=== PATIENT | female | born 1985 | race Caucasian/White ===

== ENCOUNTER 2016-11-17 05:25 | Inpatient (IN) | payer BC, OTHER ==
[2016-10-24 15:08] VITALS: BMI 22.0
--- NOTE | 2016-10-24 15:36 | PAT Medication Instructions ---
Service Date Oct 24, 2016. Current Home Medication List Gabapentin (Neurontin), Unknown Dose PO QAM Levothyroxine Sodium (Levothyroxine Sodium), 1 TAB PO QAM Minocycline (Minocin), 75 MG PO BID Venlafaxine Hcl (Effexor Extended Rel), 150 MG PO QAM [Anxiety Med ], Unknown Dose PO QDAY PRN for ANXIETY Medication Instructions For Your Scheduled Surgery Anxiety Med Unknown Dose PO QDAY PRN for ANXIETY (call with medication to [facility]) - Hold the following medications the morning of surgery: Minocycline (Minocin), 75 MG PO BID - Take the following medications the morning of surgery with a sip of water: Venlafaxine Hcl (Effexor Extended Rel), 150 MG PO QAM Gabapentin (Neurontin), Unknown Dose PO QAM (if needed) Levothyroxine Sodium (Levothyroxine Sodium), 1 TAB PO QAM - Take the following medications as scheduled the night before surgery: Minocycline (Minocin), 75 MG PO BID If you have any questions please call us at [phone] or [phone] ( [facility]) or [phone]
[2016-10-24 15:59] LABS: BASO % 0.2 %; BASO ABS # 0.01 K/uL (0-0.2); COMPLETE YES; EOS % 2.4 %; HEMATOCRIT 38.1 % (37-47); IG% 0.2 %; LYMPH % 31.7 %; LYMPH ABS # 1.45 K/uL (1.2-3.4); MEAN CORPUSCULAR HEMOGLOBIN 29.7 pg (25-34); MEAN CORPUSCULAR HGB CONC 34.1 g/dl (32-36); MEAN PLATELET VOLUME 9.2 fL (7.4-10.4); MONO % 10.3 %; NEUT % 55.2 %; PLATELET COUNT 184 K/uL (130-400); RED BLOOD COUNT 4.38 M/uL (4.2-5.4); WHITE BLOOD COUNT 4.57 K/uL (4.8-10.8)
[2016-10-24 16:19] LABS: BUN/CREATININE RATIO 11.5 (10-20); CALCIUM 8.8 mg/dl (8.5-10.1); CREATININE 0.73 mg/dl (0.60-1.20)
--- NOTE | 2016-10-24 17:49 | HISTORY & PHYSICAL EXAMINATION ---
DATE OF ADMISSION: 11/17/2016 PREOPERATIVE HISTORY AND PHYSICAL ADMITTING DIAGNOSES: 1. Menorrhagia with irregular menstrual cycles. 2. Dysmenorrhea. 3. Failed hormonal therapy. ADMISSION HISTORY: The patient is a 31-year-old 3, para 3, last menstrual period of 29 September who is admitted for total abdominal hysterectomy for chronic menorrhagia, dysmenorrhea and failed hormonal therapy. The patient has had trouble with her menstrual cycles since the of her last child. She has had an outpatient D\T\C hysteroscopy for abnormal ultrasound findings. D\T\C hysteroscopy were negative for pathology. The patient has been tried on multiple oral contraceptive pills without improvement. The patient gets incapacitating dysmenorrhea with her menstrual cycles, only mildly responsive to nonsteroidals. Other hormonal options such as IUDs have been offered, the patient declines and is requesting definitive surgical therapy. PAST MEDICAL HISTORY: OBSTETRICAL: section x3. GYNECOLOGICAL: 1. As above. 2. Mild cervical dysplasia. MEDICAL: Depression, hypothyroidism. SURGICAL: section, wisdom teeth extraction, tubal ligation. SOCIAL HISTORY: Positive for smoking. FAMILY HISTORY: Noncontributory. REVIEW OF SYSTEMS: As per HPI. ADMISSION PHYSICAL EXAMINATION: GENERAL: Shows a pleasant female in no acute distress. VITAL SIGNS: Blood pressure 104/70, height of 5 feet 4 inches and weight of 127 pounds. HEENT: Unremarkable. NECK: Supple. LUNGS: Clear. HEART: With a regular rhythm and rate. ABDOMEN: Soft, nontender. PELVIC: Shows normal external genitalia. Vaginal vault is pink and rugated. Cervical os is closed. Bimanual examination shows an anterior mobile uterus. Adnexa show no palpable masses. RECTAL: Confirmatory. EXTREMITIES: Shows no deep calf tenderness. NEUROLOGIC: Grossly intact. IMPRESSION: A 31-year-old G3, P3 chronic menorrhagia, dysmenorrhea, failed hormonal therapy for definitive surgical therapy. PLAN: The patient declined any further hormonal manipulation such as an IUD. The patient states that she has had her tubes tied and requests definitive surgical therapy. At age 30, an endometrial ablation, I do not believe would be of benefit. The patient has been offered a laparoscopic hysterectomy, but declined and is requesting an open procedure. The risks, benefits and alternatives to the surgery have been discussed while the benefits will be removal of the uterus and cessation of her menstrual cycles, the risks are bleeding, infection, inadvertent injury to bowel or bladder or failure to improve the patient's pain. The patient understands this, permit has been signed and she wishes to proceed.
[~2016-11-17] VITALS: Ht 162.6 cm; Wt 57.9 kg
[2016-11-17] VITALS (18 sets, daily range): BP systolic 97–121; BP diastolic 56–68; PULSE 72–99; TEMP 36.3–37; O2SAT 94–100; Ht 162.6 cm; Wt 57.9 kg
[2016-11-17] MEDS: LACTATED RINGER'S 1000ML 1,000 ML IV SCH ×2 (04:15→20:30)
[~2016-11-17 05:25] MED LIST: ANXIETY MED PO; EFFSR150 PO; GABA-112 PO; LEVO50TA6 PO; MINO75CA2 PO
[2016-11-17] MEDS ORDERED: LACTATED RINGER'S 1000ML IV SCH (06:00)
[2016-11-17] MEDS ORDERED: LACTATED RINGER'S 1000ML 1,000 ML IV SCH (06:00)
[2016-11-17] MEDS ORDERED: CEFAZOLIN 2000 MG/60 ML D5W 60 ML IV SCH (06:00)
[2016-11-17 06:19] LABS: PREG INTERNAL NEGATIVE QC NEG CLEAR BACKGROUND; PREG INTERNAL POSITIVE QC POS CONTROL LINE
[2016-11-17] MEDS ORDERED: MIDAZOLAM HCL 1 MG/ML 2ML VIAL ONE (07:04)
[2016-11-17] MEDS ORDERED: MoRPHine SULFATE PF 1 MG/ML 10 ML AMP/VIAL ONE (07:04)
[2016-11-17] MEDS ORDERED: SCOPOLAMINE 1.5 MG TDSY TD ONE (07:07)
[2016-11-17] MEDS ORDERED: NURSING VERBAL MED ORDER ONE ×2 (07:15→17:45)
--- NOTE | 2016-11-17 07:17 | History & Physical Bridge Note ---
H&P Re-Evaluation Bridge Note: I have examined the patient, reviewed the History & Physical and in the interval since the performance of the History & Physical I have noted the following changes of clinical significance: No changes noted
[2016-11-17] MEDS ORDERED: PROPOFOL IV EMULSION 10 MG/ML 20 ML VIAL IV ONE (07:49)
[2016-11-17] MEDS ORDERED: LIDOCAINE HCL 2% 2 ML VIAL (20MG/ML) ONE (07:50)
[2016-11-17] MEDS ORDERED: ROCURONIUM BROMIDE 10 MG/ML 5 ML VIAL ONE (07:50)
[2016-11-17] MEDS ORDERED: ESMOLOL HCL 10 MG/ML 10 ML VIAL ONE (07:50)
[2016-11-17] MEDS ORDERED: DEXAMETHASONE SOD INJ 4 MG/ML VIAL ONE (08:01)
[2016-11-17] MEDS ORDERED: GLYCOPYRROLATE INJ 0.2 MG/ML VIAL ONE (08:01)
[2016-11-17] MEDS ORDERED: NEOSTIGMINE METHYLSULFATE 5 MG/5 ML SYR ONE (08:01)
[2016-11-17] MEDS ORDERED: ONDANSETRON INJ 2 MG/ML 2 ML VIAL ONE (08:01)
[2016-11-17] MEDS ORDERED: NALOXONE HCL INJ 0.08 MG in SYRINGE 1.8 ML IV PRN (08:39)
[2016-11-17] MEDS ORDERED: LACTATED RINGER'S 1000ML 500 ML IV PRN (08:39)
[2016-11-17] MEDS ORDERED: SODIUM CHLORIDE 0.9% 1000ML 1,000 ML IV PRN (08:39)
[2016-11-17] MEDS ORDERED: NALOXONE HCL INJ 1 MG in SODIUM CHLORIDE 0.9% 1000ML 1,000 ML IV PRN (08:39)
[2016-11-17] MEDS ORDERED: ONDANSETRON INJ 2 MG/ML 2 ML VIAL IV PRN (08:45)
[2016-11-17] MEDS ORDERED: NO NARCOTICS OR SEDATIVES SCH (08:45)
[2016-11-17] MEDS ORDERED: DiphenhydrAMINE HCL 50 MG/ML VIAL IV PRN (08:45)
[2016-11-17] MEDS ORDERED: EpHEDrine SULFATE INJ 50 MG/ML AMP IV PRN (08:45)
[2016-11-17] MEDS ORDERED: NALOXONE HCL 0.4 MG/1 ML VIAL/CARP IV PRN (08:45)
[2016-11-17] MEDS ORDERED: MoRPHine SULFATE PF 1 MG/ML 10 ML AMP/VIAL EPI PRN (08:45)
[2016-11-17] MEDS ORDERED: NALBUPHINE HCL INJ 10 MG/ML AMP IV PRN (08:45)
--- NOTE | 2016-11-17 09:08 | [facility] Post Operative Brief Note ---
Immediate Operative Summary Operative Date Nov 17, 2016. Pre-Operative Diagnosis 1. Menorrhagia with irregular menstral cycle 2. Dysmenorrhea 3. Failed hormonal therapy Post-Operative Diagnosis 1. Menorrhagia with irregular menstral cycle 2. Dysmenorrhea 3. Failed hormonal therapy Procedure(s) Performed 1) Total Abdominal Hysterectomy 2) Bilateral salpingectomy Surgeon Dr. Darwin Pelayo Motor Vehicle Escort Driver Surgeon(s) Dr. Cleveland Hernandez Estimated Blood Loss 50 ML Findings multiparous uterus with bladder adhesions, nml appearing tubes and ovaries bilateral, RAFAEL with bilateral salpingectomy Specimens Permanent Specimen: A: Uterus, cervix and Right fallopian tube b: Left Fallopian tube Drains Durán to gravity Anesthesia General Complication(s) None Disposition Recovery Room / PACU
[2016-11-17] MEDS ORDERED: MoRPHine SULFATE 10 MG/ML CARP/VIAL ONE (09:11)
[2016-11-17] MEDS: KETOROLAC TROMETHAMINE 30 MG/ML VIAL IV. PRN ×2 (09:15→18:44)
[2016-11-17] MEDS: MoRPHine SULFATE 2 MG/ML CARP IV PRN ×2 (09:20→09:26)
[2016-11-17] MEDS ORDERED: HYDROmorphone INJ 2 MG/ML SYR/VIAL ONE (09:29)
[2016-11-17] MEDS ORDERED: HYDROmorphone INJ 1 MG/ML SYR IV PRN (09:30)
[2016-11-17] MEDS: HYDROmorphone INJ 2 MG/ML SYR/VIAL ONE (09:55)
[2016-11-17] MEDS: MEPERIDINE HCL 25 MG/ML CARP IV PRN ×2 (10:05→14:18)
--- NOTE | 2016-11-17 10:57 | Anesthesiology Progress Note ---
Anesthesia Post Op Note Date & Time Nov 17, 2016 at 10:54 Vital Signs Pain Intensity: 2 Vital Signs Past 12 Hours Date Time Temp Pulse Resp B/P Pulse Ox O2 Delivery O2 Flow Rate FiO2 11/17/16 10:50 36.4 11/17/16 10:44 93 16 11/17/16 10:44 93 16 97 11/17/16 10:43 116/71 11/17/16 10:39 93 16 11/17/16 10:39 93 16 94 11/17/16 10:38 122/70 11/17/16 10:34 95 16 11/17/16 10:34 97 16 96 11/17/16 10:33 122/76 11/17/16 10:32 92 20 11/17/16 10:32 93 20 95 11/17/16 10:28 116/67 11/17/16 10:27 87 16 11/17/16 10:27 85 16 92 11/17/16 10:23 122/66 11/17/16 10:22 83 19 92 11/17/16 10:22 81 19 11/17/16 10:21 85 16 97 11/17/16 10:21 86 16 11/17/16 10:18 116/64 11/17/16 10:16 92 16 11/17/16 10:16 85 16 96 11/17/16 10:13 102/74 11/17/16 10:11 98 22 11/17/16 10:11 98 22 98 11/17/16 10:08 106/67 11/17/16 10:06 96 24 11/17/16 10:06 99 24 98 11/17/16 10:03 135/74 11/17/16 10:01 98 19 11/17/16 10:01 99 19 99 11/17/16 09:59 148/47 11/17/16 09:56 96 24 11/17/16 09:56 96 24 99 11/17/16 09:53 113/62 11/17/16 09:51 97 21 11/17/16 09:51 98 21 11/17/16 09:50 125/71 11/17/16 09:46 100 15 100 11/17/16 09:46 86 15 11/17/16 09:43 119/59 11/17/16 09:41 90 19 11/17/16 09:41 88 19 99 11/17/16 09:39 107/41 11/17/16 09:36 89 14 100 11/17/16 09:36 89 14 11/17/16 09:34 101/54 11/17/16 09:31 96 20 11/17/16 09:31 95 20 100 11/17/16 09:29 125/83 11/17/16 09:26 101 21 11/17/16 09:26 101 21 100 11/17/16 09:24 128/75 11/17/16 09:21 100 24 11/17/16 09:21 103 24 100 11/17/16 09:19 106/56 11/17/16 09:16 100 22 11/17/16 09:16 99 22 98 11/17/16 09:11 98 18 11/17/16 09:11 102 18 100 11/17/16 09:11 36.8 98 16 117/74 100 Mask 10 11/17/16 05:48 36.7 91 20 116/67 99 Room Air Notes Mental Status: alert / awake / arousable, participated in evaluation Pt Amnestic to Procedure: Yes Nausea / Vomiting: adequately controlled Pain: adequately controlled Airway Patency, RR, SpO2: stable & adequate BP & HR: stable & adequate Hydration State: stable & adequate Neuraxial Anesthesia: was administered, sensory block is resolving Anesthetic Complications: no major complications apparent The patient received a Duramorph spinal prior to intubation for the procedure. She was given Duramorph IV intraoperatively. In the PACU the patient was having pain for which she received morphine, Toradol, Dilaudid, and Demerol. She now appears comfortable. She will have continuous pulse oximetry overnight.
--- NOTE | 2016-11-17 11:20 | OPERATIVE REPORT ---
DATE OF OPERATION: 11/17/2016 PREOPERATIVE DIAGNOSES: 1. Menorrhagia with irregular menstrual cycles. 2. Dysmenorrhea. POSTOPERATIVE DIAGNOSES: Same. PROCEDURE PERFORMED: Total abdominal hysterectomy and bilateral salpingectomy. SURGEON: Dr. Trent Pelayo. REGISTRAR MUSEUM: Dr. Hernandez. ANESTHESIA: General. FINDINGS: Exploration of the pelvis showed a multiparous uterus with adhesions consistent with a previous section. Normal appearing tubes and ovaries bilaterally. Total abdominal hysterectomy with bilateral salpingectomy performed. PROCEDURE IN DETAIL: The patient was taken to the operating room and after general anesthesia, was placed in the dorsolithotomy position, draped and prepped in the usual fashion. Pfannenstiel-type incision to previous surgical scar was made. Underlying subcutaneous tissue was dissected down to the ventral abdominal fascia, which was nicked and opened in a horizontal manner. Preperitoneal fascia was dissected away until the peritoneal cavity was entered and opened in a vertical manner. Pelvic organs were visualized with the description as above. The O'Emeka-O'Worrell retractor was inserted into the incision with lateral packing to bring the retractor off the perineal and femoral nerves. The bladder blade was placed. The intestines were packed into the upper abdomen. The left fallopian tube was excised by cauterizing along the mesosalpinx and sent for pathological evaluation. The left round ligament was then cauterized and cut, opening the anterior leaf of the broad ligament, which was taken down over the level of the bladder flap. Adhesiolysis performed of bladder flap adhesions, freeing the bladder flap from the anterior surface of the uterus. The left perirectal space was then developed until the ureter could be seen coursing along the medial reflection of the peritoneum. This allowed cross clamping of the ovarian suspensory ligament excising it from the uterus and ligating with 0 Vicryl suture. In a similar fashion, the right fallopian tube was excised cutting along the mesosalpinx and sent for pathological evaluation. The right round ligament was cut opening the anterior leaf of the broad ligament, which was taken down to join the contralateral side. Right perirectal space was developed until the ureter could be seen coursing along the medial reflection of the peritoneum. This allowed cross clamping of the ovarian suspensory ligament on the right, cutting and tying with 0 Vicryl suture. Dissection was again turned to the bladder, which was bluntly and sharply taken down below the level of the cervix. Uterine vessels were skeletonized bilaterally. Vijay clamps were then placed across the uterine vessels bilaterally. They were then cut and ligated with 0 Vicryl suture. The cardinal and uterosacral ligaments were then clamped bilaterally with a straight [place] clamp. Vijay Linda clamps were then placed across the vagina below the level of the cervix joining in the midline. Using Angelica scissors, the cervix was excised from the vagina. The vaginal cuff was closed with 2 layers of 0 Vicryl with a whipstitch fashion removing the Vijay Linda clamp. Hemostasis present. The pelvis was irrigated with 1000 mL of warm saline. All pedicles were inspected for hemostasis, which was present. The ovarian suspensory ligament was attached to the round ligament with 0 Vicryl suture, bringing the ovaries out of the pelvis bilaterally. All pedicles were again inspected for hemostasis, which was present. The O'Emeka-O'Worrell retractor was removed from the incision along with packing, sponge and needle count was correct. The rectus muscle was plicated in the midline with a running 2-0 Vicryl stitch. The fascia was closed laterally with a running 0 Vicryl suture. Subcutaneous tissue was irrigated with warm saline and the edges were freed from the subcutaneous tissue using the bipolar cautery instrument. The skin incision was then closed with a 4-0 Monocryl subcuticular stitch. Sterile dressing was applied and the patient was taken to the recovery room in satisfactory condition. I attest to the content of the Intraoperative Record and any orders documented therein. Any exceptio ns are noted below.
[2016-11-17] MEDS: CHECK SCOPOLAMINE PATCH PLACEMENT SCH (16:30)
[2016-11-17] MEDS: VENLAFAXINE HCL XR 150 MG CAPXR PO SCH (21:07)
[2016-11-17] MEDS: LEVOTHYROXINE 50 MCG TAB PO SCH (21:07)
[2016-11-18] VITALS: O2SAT 96
[2016-11-18] MEDS: CHECK SCOPOLAMINE PATCH PLACEMENT SCH ×3 (00:18→15:54)
[2016-11-18] MEDS: KETOROLAC TROMETHAMINE 30 MG/ML VIAL IV. PRN (00:29)
[2016-11-18 01:00] VITALS: O2SAT 95
[2016-11-18] MEDS: MoRPHine SULFATE 2 MG/ML CARP IV PRN (01:10)
[2016-11-18] MEDS ORDERED: DC INTRASPINAL MORPHINE ONE (01:30)
[2016-11-18] MEDS ORDERED: KETOROLAC TROMETHAMINE 30 MG/ML VIAL IV. PRN (01:31)
[2016-11-18] MEDS ORDERED: ONDANSETRON INJ 2 MG/ML 2 ML VIAL IV PRN (01:31)
[2016-11-18 04:15] VITALS: BP 97/61; PULSE 62; TEMP 36.8; O2SAT 99
[2016-11-18] MEDS: OXYCODONE/ACETAMINOPHEN 5-325 TAB PO PRN ×5 (06:22→20:15)
[2016-11-18] MEDS ORDERED: LEVOTHYROXINE 50 MCG TAB PO SCH ×2 (07:00→21:00)
[2016-11-18 08:00] VITALS: BP 95/60; PULSE 90; TEMP 37.1; O2SAT 98
--- NOTE | 2016-11-18 08:08 | OB/GYN Progress Note ---
[facility] Progress Note Date of Service Nov 18, 2016. Subjective conversation w/ patient, physical exam Voiding: pompa catheter in place Diet Tolerance: Clear Liquids Objective Vital Signs Date Time Temp Pulse Resp B/P Pulse Ox O2 Delivery O2 Flow Rate FiO2 11/18/16 04:15 36.8 62 18 97/61 99 Room Air 11/18/16 01:00 16 95 11/18/16 00:00 16 96 11/17/16 23:25 98 Room Air 11/17/16 23:25 37.0 72 18 103/64 98 Room Air 11/17/16 23:00 18 97 11/17/16 22:00 14 96 11/17/16 21:10 36.7 96 20 97/63 100 Room Air 11/17/16 21:00 16 96 11/17/16 20:00 20 98 11/17/16 19:00 16 96 11/17/16 18:00 16 98 11/17/16 17:00 20 100 11/17/16 16:05 16 98 11/17/16 16:05 98 Room Air 11/17/16 16:00 36.8 90 18 97/62 99 Room Air 11/17/16 15:00 14 96 11/17/16 14:05 36.4 77 16 97/60 94 Room Air 11/17/16 14:05 16 94 11/17/16 13:05 36.6 99 20 110/65 94 Room Air 11/17/16 13:05 20 94 11/17/16 12:05 18 94 11/17/16 12:05 36.8 96 18 101/64 94 Nasal Cannula 2.0 11/17/16 11:35 36.6 98 18 99/56 100 Nasal Cannula 2.0 11/17/16 11:05 97 Nasal Cannula 2.0 11/17/16 11:05 36.3 99 18 121/68 98 Nasal Cannula 2.0 11/17/16 11:05 18 98 11/17/16 11:05 97 Nasal Cannula 2.0 11/17/16 10:55 107 11/17/16 10:55 107 97 11/17/16 10:53 125/70 11/17/16 10:50 36.4 11/17/16 10:50 98 16 97 11/17/16 10:50 98 16 11/17/16 10:48 127/67 11/17/16 10:45 93 16 11/17/16 10:45 92 16 97 11/17/16 10:44 93 16 11/17/16 10:44 93 16 97 11/17/16 10:43 116/71 11/17/16 10:39 93 16 11/17/16 10:39 93 16 94 11/17/16 10:38 122/70 11/17/16 10:34 95 16 11/17/16 10:34 97 16 96 11/17/16 10:33 122/76 11/17/16 10:32 92 20 11/17/16 10:32 93 20 95 11/17/16 10:28 116/67 11/17/16 10:27 87 16 11/17/16 10:27 85 16 92 11/17/16 10:23 122/66 11/17/16 10:22 83 19 92 11/17/16 10:22 81 19 11/17/16 10:21 85 16 97 11/17/16 10:21 86 16 11/17/16 10:18 116/64 11/17/16 10:16 92 16 11/17/16 10:16 85 16 96 11/17/16 10:13 102/74 11/17/16 10:11 98 22 11/17/16 10:11 98 22 98 11/17/16 10:08 106/67 11/17/16 10:06 96 24 11/17/16 10:06 99 24 98 11/17/16 10:03 135/74 11/17/16 10:01 98 19 11/17/16 10:01 99 19 99 11/17/16 09:59 148/47 11/17/16 09:56 96 24 11/17/16 09:56 96 24 99 11/17/16 09:53 113/62 11/17/16 09:51 97 21 11/17/16 09:51 98 21 11/17/16 09:50 125/71 11/17/16 09:46 100 15 100 11/17/16 09:46 86 15 11/17/16 09:43 119/59 11/17/16 09:41 90 19 11/17/16 09:41 88 19 99 11/17/16 09:39 107/41 11/17/16 09:36 89 14 100 11/17/16 09:36 89 14 11/17/16 09:34 101/54 11/17/16 09:31 96 20 11/17/16 09:31 95 20 100 11/17/16 09:29 125/83 11/17/16 09:26 101 21 11/17/16 09:26 101 21 100 11/17/16 09:24 128/75 11/17/16 09:21 100 24 11/17/16 09:21 103 24 100 11/17/16 09:19 106/56 11/17/16 09:16 100 22 11/17/16 09:16 99 22 98 11/17/16 09:11 98 18 11/17/16 09:11 102 18 100 11/17/16 09:11 36.8 98 16 117/74 100 Mask 10 Physical Exam General Appearance: WELL-APPEARING, NO APPARENT DISTRESS Respiratory/Chest: lungs clear Cardiovascular: regular rate, rhythm Incision Description: Clean, Dry & Intact (dressing removed) Extremities: no calf tenderness Laboratory Results Last 24 Hours Test 11/18/16 07:16 Assessment and Plan Post-Op Day Number: 1 (1) Menorrhagia with irregular cycle Assessment & Plan: - discussed surgery and findings with patient - d/c Pompa, begin ambulation - advance diet - routine care
[2016-11-18] MEDS ORDERED: MTR600X PO (08:10)
[2016-11-18] MEDS ORDERED: OXYC-57 PO (08:10)
--- NOTE | 2016-11-18 08:12 | Discharge Instructions ---
Discharge Instructions Admission Reason for Admission: Menorrhagia Discharge Discharge Diagnosis / Problem: same Discharge Goals Goal(s): Routine recovery after surgery Activity Recommendations Activity Limitations: as noted below . Instructions / Follow-Up Instructions / Follow-Up ACTIVITY RECOMMENDATIONS: Activity: * During the first week at home, your activity should be similar to that done at the hospital prior to discharge. Your primary activity is in-house walking interspersed with rest periods. Preparing lunch for yourself is acceptable. You may go up and down stairs. Try to stay up progressively longer periods of time to help regain your strength more quickly. * During the second week at home, activities should include some meal preparation, walking to strengthen abdominal muscles and riding in a car. You may drive a car and make brief shopping trips at the end of the second week at home. * Lifting should not exceed 15-20 pounds during the first month after surgery. * Sexual intercourse can usually be resumed about 6 weeks after surgery depending on findings at your post-operative examinations. Bathing: * Showers or baths are permissible. Sitting in four to six inches of hot water (sitz bath) is often comforting after vaginal surgery and is permitted at any time. A sitz bath at bedtime can also assist in a better night's sleep. SPECIAL CARE INSTRUCTIONS: The major discomforts related to surgery have now passed and progressive improvement will occur. The tight uncomfortable feeling in the abdominal, pelvic and back area will gradually fade away. Fatigue may take the longest to disappear; your energy level may take several weeks to return to normal. At times you may become frustrated or impatient over not feeling as well or doing as much as you'd like , but this is a normal reaction to surgery and will pass with time. Vaginal Discharge: * Odorous, blood-tinged or brownish discharge may be present for one to three weeks after surgery. * Pads should be used and not tampons. * Stitches may be passed vaginally. * Bleeding may be somewhat increased approximately two weeks after surgery, which is related to the stitches dissolving. * If bleeding becomes free flowing, notify our office at . Bowel Care: * Constipation after surgery is very common. Foods that promote bowel activity (bran, fruit, prune juice) should be included in your diet. * A capsule, DIALOSE-PLUS, can be purchased without a prescription and can be taken daily (one or two capsules) to assist in promoting bowel activity. * If you have had vaginal surgery involving your rectum, we will discuss this when discharged from the hospital. Catheter or "CYSTO-CATH": * Approximately 80% of "bladder repair" patients will require a catheter at home until the swelling recedes. * Some patients require days to weeks before adequate bladder emptying will resume. * In general, after each time you urinate, un-clamp the catheter again. Measure the amount in the bag. When this is consistently below 100cc, call the office to make an appointment to have the catheter removed. Temperature: * Any fever above 100.4 degrees F should be reported to our office at . FOLLOW-UP: Post-Operative Appointments: * Individual instructions will have been given about the timing of your first examination, but this is usually at the end of the second week home. * You will need to call the office at soon after discharge to make the appointment for your post-op check-up if it has not already been scheduled. * Additional information regarding activity, sexual intercourse and when to return to work will be given at this appointment. WE WISH YOU A SPEEDY RECOVERY! Current Hospital Diet Patient's current hospital diet: Clear Liquid Diet Discharge Diet Recommended Diet: Regular Diet Procedures Procedures Performed: 1) Total Abdominal Hysterectomy 2) Bilateral salpingectomy Pending Studies Studies pending at discharge: yes List of pending studies: Patology report Medical Emergencies . Who to Call and When: Medical Emergencies: If at any time you feel your situation is an emergency, please call 911 immediately. . Non-Emergent Contact Non-Emergency issues call your: Marina Porter Call Non-Emergent contact if: you have a fever, temperature is above 100.5, your pain is not controlled, wound has increased drainage, wound has increased redness . . "Provider Documentation" section prepared by Trent Pelayo. VTE Core Measure Inpt VTE Proph given/why not?: SCD's
[2016-11-18 08:13] LABS: BASO % 0.2 %; BASO ABS # 0.01 K/uL (0-0.2); COMPLETE YES; EOS % 0.8 %; HEMATOCRIT 29.5 % (37-47); IG% 0.2 %; LYMPH % 26.3 %; LYMPH ABS # 1.61 K/uL (1.2-3.4); MEAN CELL VOLUME 88.1 fL (80-100); MEAN CORPUSCULAR HEMOGLOBIN 29.3 pg (25-34); MEAN CORPUSCULAR HGB CONC 33.2 g/dl (32-36); MEAN PLATELET VOLUME 9.7 fL (7.4-10.4); MONO % 12.6 %; NEUT % 59.9 %; PLATELET COUNT 158 K/uL (130-400); RED BLOOD COUNT 3.35 M/uL (4.2-5.4); WHITE BLOOD COUNT 6.12 K/uL (4.8-10.8)
[2016-11-18] MEDS ORDERED: VENLAFAXINE HCL XR 150 MG CAPXR PO SCH (09:00)
[2016-11-18] MEDS: IBUPROFEN 600 MG TAB PO PRN ×3 (10:35→19:05)
[2016-11-18 11:40] VITALS: BP 106/69; PULSE 80; TEMP 37.4; O2SAT 99
[2016-11-18] MEDS ORDERED: NURSING VERBAL MED ORDER ONE ×2 (14:00→17:45)
[2016-11-18] MEDS: LEVOTHYROXINE 50 MCG TAB PO SCH (14:29)
[2016-11-18] MEDS: VENLAFAXINE HCL XR 150 MG CAPXR PO SCH (14:29)
[2016-11-18 15:45] VITALS: BP 110/73; PULSE 84; TEMP 37.1; O2SAT 98
[2016-11-18] MEDS ORDERED: SENNA 8.6 MG TAB PO SCH (21:00)
[2016-11-18] MEDS ORDERED: MAGNESIUM HYDROXIDE SUSP 30 ML UDC PO SCH (21:00)
[2016-11-19] MEDS: OXYCODONE/ACETAMINOPHEN 5-325 TAB PO PRN ×3 (00:07→10:11)
[2016-11-19] MEDS: IBUPROFEN 600 MG TAB PO PRN ×3 (00:07→10:11)
[2016-11-19 00:10] VITALS: BP 90/53; PULSE 79; TEMP 36.7; O2SAT 98
[2016-11-19] MEDS: CHECK SCOPOLAMINE PATCH PLACEMENT SCH ×2 (00:22→08:00)
[2016-11-19 07:51] LABS: BASO % 0.2 %; BASO ABS # 0.01 K/uL (0-0.2); COMPLETE YES; EOS % 1.6 %; HEMATOCRIT 29.4 % (37-47); IG% 0.2 %; LYMPH % 33.7 %; LYMPH ABS # 1.93 K/uL (1.2-3.4); MEAN CELL VOLUME 87.2 fL (80-100); MEAN CORPUSCULAR HEMOGLOBIN 29.4 pg (25-34); MEAN CORPUSCULAR HGB CONC 33.7 g/dl (32-36); MEAN PLATELET VOLUME 9.4 fL (7.4-10.4); NEUT % 50.3 %; PLATELET COUNT 158 K/uL (130-400); RED BLOOD COUNT 3.37 M/uL (4.2-5.4); WHITE BLOOD COUNT 5.72 K/uL (4.8-10.8)
[2016-11-19 08:00] VITALS: BP 99/67; PULSE 80; TEMP 37; O2SAT 99
--- NOTE | 2016-11-19 08:57 | OB/GYN Progress Note ---
[employer] [employer] [facility] Progress Note Date of Service Nov 19, 2016. Subjective conversation w/ patient, physical exam, chart review, lab review Ambulation: ambulating normally Voiding: no voiding problems Passing Gas: No Objective Vital Signs Date Time Temp Pulse Resp B/P Pulse Ox O2 Delivery O2 Flow Rate FiO2 11/19/16 00:10 98 Room Air 11/19/16 00:10 36.7 79 18 90/53 98 Room Air 11/18/16 15:45 98 Room Air 11/18/16 15:45 37.1 84 18 110/73 98 Room Air 11/18/16 11:40 37.4 80 18 106/69 99 Room Air Physical Exam General Appearance: WELL-APPEARING Respiratory/Chest: lungs clear Cardiovascular: regular rate, rhythm Abdomen: normal bowel sounds, + distended Incision Description: Clean, Dry & Intact Extremities: no calf tenderness Laboratory Results Last 24 Hours Test 11/19/16 07:23 White Blood Count 5.72 K/uL Red Blood Count 3.37 M/uL Hemoglobin 9.9 g/dL Hematocrit 29.4 % Mean Corpuscular Volume 87.2 fL Mean Corpuscular Hemoglobin 29.4 pg Mean Corpuscular Hemoglobin Concent 33.7 g/dl Platelet Count 158 K/uL Mean Platelet Volume 9.4 fL Neutrophils (%) (Auto) 50.3 % Lymphocytes (%) (Auto) 33.7 % Monocytes (%) (Auto) 14.0 % Eosinophils (%) (Auto) 1.6 % Basophils (%) (Auto) 0.2 % Neutrophils # (Auto) 2.88 K/uL Lymphocytes # (Auto) 1.93 K/uL Monocytes # (Auto) 0.80 K/uL Eosinophils # (Auto) 0.09 K/uL Basophils # (Auto) 0.01 K/uL RDW Standard Deviation 42.0 fL RDW Coefficient of Variation 13.0 % Immature Granulocyte % (Auto) 0.2 % Immature Granulocyte # (Auto) 0.01 K/uL Assessment and Plan Post-Op Day Number: 2 Continue Routine Care: pod#2. Tolerating PO diet and pain controlled by PO meds. No flatus yet, so will use dulcolax supps. Meets criteria when passes flatus. JFD (1) Menorrhagia with irregular cycle
[2016-11-19] MEDS ORDERED: BISACODYL 10 MG SUPP PR PRN (09:00)
[2016-11-19] MEDS ORDERED: VENLAFAXINE HCL XR 150 MG CAPXR PO SCH (09:00)
[2016-11-19] MEDS ORDERED: SIMETHICONE 80 MG CHEW PO PRN (09:00)
[2016-11-19] MEDS ORDERED: LEVOTHYROXINE 50 MCG TAB PO SCH (09:00)
[2016-11-19 10:15] VITALS: BP 99/67; PULSE 80; TEMP 37; O2SAT 99
--- NOTE | 2016-11-20 07:49 | DISCHARGE SUMMARY ---
ADMITTING DIAGNOSES: 1. Menorrhagia with irregular menstrual cycles. 2. Dysmenorrhea. 3. Failed hormonal therapy. DISCHARGE DIAGNOSES: Same. PROCEDURES PERFORMED: 1. Total abdominal hysterectomy. 2. Bilateral salpingectomy. DISCHARGE MEDICATIONS: 1. Percocet 5/325 1-2 p.o. q. 4-6 hours p.r.n. pain. 2. Motrin 600 mg p.o. q. 6 hours p.r.n. pain. ADMISSION HISTORY OF PRESENT ILLNESS: The patient is a 31-year-old 3, para 3, last menstrual period of 29 September who is admitted for total abdominal hysterectomy for chronic menorrhagia, dysmenorrhea and failed hormonal therapy. The patient has had trouble with her menstrual cycle since the of her last child. She had an outpatient D\T\C hysteroscopy for abnormal ultrasound findings and D\T\C hysteroscopy were negative for pathology. The patient has been tried on multiple oral contraceptive pills without improvement. The patient also gets incapacitating dysmenorrhea with her menstrual cycles only mildly responsive to nonsteroidals. Other hormonal options such as IUDs have been offered. The patient declines and is requesting definitive surgical therapy. ADMISSION PHYSICAL EXAMINATION: GENERAL: Shows a pleasant female in no acute distress. VITAL SIGNS: Blood pressure 104/70, height of 5 feet 4 inches, and weight of 127 pounds. HEENT: Unremarkable. NECK: Supple. LUNGS: Clear. HEART: With a regular rhythm and rate. ABDOMEN: Soft, nontender. PELVIC: Shows normal external genitalia, vaginal wall pink and rugated. Cervical os is closed. Bimanual examination shows an anterior mobile uterus. The adnexa show no palpable masses. RECTAL: Confirmatory. EXTREMITIES: Showed no deep calf tenderness. NEUROLOGIC: Grossly intact. ADMISSION LABORATORY VALUES: Showed an H\T\H of 13.0 and 38.1. HOSPITAL COURSE: On day of admission, the patient was taken to the operating room where she underwent the above listed procedures. Operative findings showed a multiparous uterus with adhesions consistent with previous section, normal appearing tubes and ovaries bilaterally. Total abdominal hysterectomy with bilateral salpingectomy performed. Postoperatively, the patient did well. Durán catheter was removed on the first postoperative day. H\T\H came back at 9.8 and 29.5. By the 2nd postoperative day, the patient was tolerating a regular diet and passing flatus. She was requesting discharge home. She was given the routine discharge instructions and the prescriptions for the medications as listed as above. Pathology from the procedure was pending at the time of discharge. She was instructed to call with any questions, problems or difficulties. She has a followup appointment in 2 weeks time.
== END 2016-11-19 10:15 | disposition home or self-care (01) | DRG 743 ==
LOC: ENRESERVTM → ENRESERVDT → C.ACU 05:25 → C.MS4N 06:00
PROVIDERS: ADMIT Obstetrics & Gynecology; ATTEND Obstetrics & Gynecology
PROC: 0UTC0ZZ Resection of Cervix, Open Approach (ICD-10-PCS; principal; 2016-11-17 07:30)
PROC: 0UT70ZZ Resection of Bilateral Fallopian Tubes, Open Approach (ICD-10-PCS; principal; 2016-11-17 07:30)
PROC: 0UT90ZZ Resection of Uterus, Open Approach (ICD-10-PCS; principal; 2016-11-17 07:30)
DX: N92.0 Excessive and frequent menstruation with regular cycle (principal); N94.6 Dysmenorrhea, unspecified; K66.0 Peritoneal adhesions (postprocedural) (postinfection); E03.9 Hypothyroidism, unspecified; F32.9 Major depressive disorder, single episode, unspecified; F41.9 Anxiety disorder, unspecified; F17.210 Nicotine dependence, cigarettes, uncomplicated; Z87.410 Personal history of cervical dysplasia; Z79.899 Other long term (current) drug therapy

== ENCOUNTER 2017-07-27 18:49 | Emergency (ER) | payer OTHER ==
[~2017-07-27] VITALS: Ht 162.6 cm; Wt 58.2 kg
[~2017-07-27 18:49] MED LIST changes: -ANXIETY MED PO; +MTR600X PO; +OXYC-57 PO
[2017-07-27 19:04] VITALS: TEMP 36.8; Ht 162.6 cm; Wt 58.2 kg
[2017-07-27] MEDS ORDERED: SODIUM CHLORIDE 0.9% 1000ML 1,000 ML IV STA (20:00)
[2017-07-27] MEDS ORDERED: MNC50 PO (20:28)
[2017-07-27] MEDS ORDERED: SPIR25TA89 PO (20:31)
[2017-07-27] MEDS ORDERED: FERRCAP9 PO (20:31)
--- NOTE | 2017-07-27 20:32 | EMERGENCY ROOM VISIT NOTE ---
History Report prepared by Robert: Gary Larose Under the Supervision of: Dr. Nai Denis D.O. First contact with patient: 19:45 Chief Complaint: WEAKNESS Stated Complaint: WEAK,DIZZY,BLURRY VISION,HEAD PRESSURE Nursing Triage Summary: see triage note History of Present Illness The patient is a 31 year old female who presents to the Emergency Room with complaints of constant weakness for the past two days. The patient states that she has been diagnosed with hypothyroidism and has had intermittent lethargy for the past few months. She notes that her symptoms have worsened since yesterday and she is experiencing more lightheadedness and dizziness. The patient also states that her PCP diagnosed her with iron deficient anemia following a hysterectomy. Following her worsening lethargy, the patient notes that she was concerned that it may be a thyroid issue and notes that she doubled her hypothyroid medication today. After calling her PCP today, she was told to come into the ED for her worsening symptoms. The patient complains of comprehension problems, vision changes which she describes as blurry, hearing changes, equilibrium changes, pressure on her neck, diaphoresis at night, frequent bowel movements, chills and a headache last week. She denies any changes in her diet, sick contacts, vomiting, diarrhea, pain, fever, chest pain , urinary symptoms, and headaches in the past two days. She reports that her symptoms are worsened with movement and are relieved with rest. Source of History: patient Onset: two days ago Position: other (global) Quality: other (weakness) Timing: constant Modifying Factors (Worsening): movement Modifying Factors (Relieving): rest Associated Symptoms: + chills, + diaphoresis, No fevers, No headache, No chest pain, No vomiting, No diarrhea, No urinary symptoms Note: The patient complains of comprehension problems, vision changes, hearing changes , equilibrium changes, pressure on her neck, frequent bowel movements. She denies any changes in her diet, sick contacts, pain. Review of Systems See HPI for pertinent positives & negatives. A total of 10 systems reviewed and were otherwise negative. Past Medical & Surgical Medical Problems: (1) Dysmenorrhea (2) Menorrhagia with irregular cycle (3) Neck pain (4) Urinary tract infection (5) Urinary tract infection Surgical Problems: (1) H/O section (2) History of tubal ligation Family History Cancer Social History Smoking Status: Current Every Day Smoker Alcohol Use: occasionally Marital Status: in relationship Housing Status: lives with family Occupation Status: employed Current/Historical Medications Scheduled Ferrous Fumarate-Iron Polysacc (Tandem), 1 CAP PO DAILY Gabapentin (Neurontin), 100 MG PO QAM Levothyroxine Sodium (Levothyroxine Sodium), 50 MCG PO QAM Minocycline HCl (Minocycline HCl), 50 MG PO BID Spironolactone (Aldactone), 1 TAB PO DAILY Venlafaxine Hcl (Effexor Extended Rel), 150 MG PO QAM Scheduled PRN Ibuprofen (Ibuprofen), 600 MG PO Q4H PRN for Pain, OROZCO, Cramping, Edema Allergies Coded Allergies: No Known Allergies (Verified , 07/27/17) Physical Exam Vital Signs Date Time Temp Pulse Resp B/P (MAP) Pulse Ox O2 Delivery O2 Flow Rate FiO2 07/27/17 23:45 75 16 104/59 100 07/27/17 21:30 77 16 97/56 100 Room Air 07/27/17 20:18 117/75 114/77 113/82 07/27/17 19:04 36.8 85 18 127/82 100 Room Air Physical Exam GENERAL: alert, well appearing, well nourished, no distress, non-toxic EYE EXAM: normal conjunctiva, PERRL and EOM's grossly intact OROPHARYNX: no exudate, no erythema, lips, buccal mucosa, and tongue normal and mucous membranes are moist NECK: supple, no nuchal rigidity, no adenopathy, non-tender LUNGS: Clear to auscultation. Normal chest wall mechanics HEART: no murmurs, S1 normal and S2 normal ABDOMEN: abdomen soft, non-tender, normo-active bowel sounds, no masses, no rebound or guarding. BACK: Back is symmetrical on inspection and there is no deformity, no midline tenderness, no CVA tenderness. SKIN: no rashes and no bruising UPPER EXTREMITIES: upper extremities are grossly normal. LOWER EXTREMITIES: No pitting edema. NEURO EXAM: Normal sensorium, cranial nerves II-XII grossly intact, normal speech, no gross weakness of arms, no gross weakness of legs. No drift. Finger to nose intact. Gross sensation intact. Medical Decision & Procedures ER Provider Diagnostic Interpretation: Radiology results have been interpreted by the radiologist and reviewed by me. BRAIN COMBO FINDINGS: Ventricles and sulci normal in size. Brain parenchyma normal in appearance with preserved diaz-white differentiation. No mass effect or midline shift. No restricted diffusion to suggest acute ischemia. No hemorrhage. No extra-axial fluid collection. T2 skull base flow voids preserved. No abnormal parenchymal enhancement. Bone marrow signal intensity within the calvarium within normal limits. IMPRESSION: 1. No acute intracranial pathology. No abnormal enhancement. Electronically signed by: Roel Calloway M.D. 07/27/2017 10:45 PM Dictated Date/Time: 07/27/2017 10:41 PM Laboratory Results 07/27/17 20:26 Red Blood Count 4.30, Mean Corpuscular Volume 88.1, Mean Corpuscular Hemoglobin 30.2, Mean Corpuscular Hemoglobin Concent 34.3, Mean Platelet Volume 9.5, Neutrophils (%) (Auto) 47.2, Lymphocytes (%) (Auto) 39.2, Monocytes (%) (Auto) 11.0, Eosinophils (%) (Auto) 2.0, Basophils (%) (Auto) 0.3, Neutrophils # (Auto ) 2.78, Lymphocytes # (Auto) 2.31, Monocytes # (Auto) 0.65, Eosinophils # (Auto ) 0.12, Basophils # (Auto) 0.02 07/27/17 20:26 Test 07/27/17 20:26 White Blood Count 5.90 K/uL (4.8-10.8) Red Blood Count 4.30 M/uL (4.2-5.4) Hemoglobin 13.0 g/dL (12.0-16.0) Hematocrit 37.9 % (37-47) Mean Corpuscular Volume 88.1 fL (80-100) Mean Corpuscular Hemoglobin 30.2 pg (25-34) Mean Corpuscular Hemoglobin Concent 34.3 g/dl (32-36) Platelet Count 217 K/uL (130-400) Mean Platelet Volume 9.5 fL (7.4-10.4) Neutrophils (%) (Auto) 47.2 % Lymphocytes (%) (Auto) 39.2 % Monocytes (%) (Auto) 11.0 % Eosinophils (%) (Auto) 2.0 % Basophils (%) (Auto) 0.3 % Neutrophils # (Auto) 2.78 K/uL (1.4-6.5) Lymphocytes # (Auto) 2.31 K/uL (1.2-3.4) Monocytes # (Auto) 0.65 K/uL (0.11-0.59) Eosinophils # (Auto) 0.12 K/uL (0-0.5) Basophils # (Auto) 0.02 K/uL (0-0.2) RDW Standard Deviation 40.0 fL (36.4-46.3) RDW Coefficient of Variation 12.5 % (11.5-14.5) Immature Granulocyte % (Auto) 0.3 % Immature Granulocyte # (Auto) 0.02 K/uL (0.00-0.02) Urine Color YELLOW Urine Appearance CLEAR (CLEAR) Urine pH 6.0 (4.5-7.5) Urine Specific [place] 1.023 (1.000-1.030) Urine Protein NEG (NEG) Urine Glucose (UA) NEG (NEG) Urine Ketones NEG (NEG) Urine Occult Blood NEG (NEG) Urine Nitrite NEG (NEG) Urine Bilirubin NEG (NEG) Urine Urobilinogen NEG (NEG) Urine Leukocyte Esterase NEG (NEG) Anion Gap 7.0 mmol/L (3-11) Est Creatinine Clear Calc Drug Dose 89.7 ml/min Estimated GFR () 115.5 Estimated GFR (Non- 99.6 BUN/Creatinine Ratio 12.9 (10-20) Calcium Level 9.2 mg/dl (8.5-10.1) Magnesium Level 2.0 mg/dl (1.8-2.4) Total Bilirubin < 0.1 mg/dl (0.2-1) Aspartate Amino Transf (AST/SGOT) 12 U/L (15-37) Alanine Aminotransferase (ALT/SGPT) 17 U/L (12-78) Alkaline Phosphatase 60 U/L (45-117) Troponin I < 0.015 ng/ml (0-0.045) Total Protein 7.0 gm/dl (6.4-8.2) Albumin 4.0 gm/dl (3.4-5.0) Globulin 3.0 gm/dl (2.5-4.0) Albumin/Globulin Ratio 1.3 (0.9-2) Thyroid Stimulating Hormone (TSH) 1.540 uIu/ml (0.300-4.500) Lyme Disease IgG Antibody NEG (NEG) Lyme Disease IgM Antibody NEG (NEG) Monoscreen NEG (NEG) Laboratory results per my review. Medications Administered Medications (Trade) Dose Ordered Sig/Tobin Route Start Time Stop Time Status Last Admin Dose Admin Sodium Chloride 1,000 ml @ 999 mls/hr Q1H1M STAT IV 07/27/17 20:00 07/27/17 21:00 DC 07/27/17 20:00 999 MLS/HR ECG Indication: weakness Rate (beats per minute): 63 Rhythm: sinus rhythm Findings: no acute ischemic change, no ectopy, other (normal axis, normal intervals) ED Course 1946: The patient was evaluated in room C02B. A complete history and physical exam was performed. 1999: Sodium Chloride 1,000 ml @ 999 mls/hr IV. 2309: I reevaluated and updated the patient. 2229: Gadavist 5.5mmol PRN IV interaction checking. 2336: Upon reevaluation, the patient is feeling better. I discussed the findings and the treatment plan with the patient. She verbalizes agreement and understanding. The patient was discharged home. Medical Decision Differential diagnosis: Etiologies such as benign positional vertigo, dehydration, hypovolemia, anemia, tumor, infection, hypoglycemia, electrolyte abnormalities, cardiac sources, intracerebral event, toxicologic, neurologic, as well as others were entertained. Pt with intermittent fatigue and hx of thyroid dysfunction. More recently with additional sx of headaches, dizziness, vision changes. No hx of cardiac issues. Doubt dysrhythmia/acs. No recent sx to suggest infectious etiology. Labs and imaging reassuring. Discussed with her f/u with pcp and with neurology. Discussed possible migraine variant given fam hx of migraines. No lesions to suggest MS but discussed with pt may still need neuro eval for this and other etiology. Medication Reconcilliation Current Medication List: was personally reviewed by me Blood Pressure Screening Patient's blood pressure: Normal blood pressure Blood pressure disposition: Did not require urgent referral Impression Primary Impression: Headache Additional Impressions: Dizziness Fatigue Vision changes Scribe Attestation The scribe's documentation has been prepared under my direction and personally reviewed by me in its entirety. I confirm that the note above accurately reflects all work, treatment, procedures, and medical decision making performed by me. Departure Information Dispostion Home / Self-Care Referrals Aditi Narvaez (PCP) Forms HOME CARE DOCUMENTATION FORM, IMPORTANT VISIT INFORMATION Patient Instructions My [facility] Additional Instructions Please follow-up with your family doctor. Please discuss with them the symptoms you've been having. They may refer you to a neurologist as a precaution. Please continue your regular medications. Please eat and drink normally. If you have any worsening symptoms or new concerns, please return to the emergency room. Problem Qualifiers Primary Impression: Headache Headache type: unspecified Headache chronicity pattern: episodic headache Intractability: not intractable Qualified Codes: R51 - Headache Additional Impressions: Fatigue Fatigue type: unspecified Qualified Codes: R53.83 - Other fatigue
[2017-07-27 20:53] LABS: URINE APPEARANCE CLEAR (CLEAR); URINE BILIRUBIN NEG (NEG); URINE COLOR YELLOW; URINE NITRITE NEG (NEG); URINE SPECIFIC GRAVITY 1.023 (1.000-1.030); UROBILINOGEN NEG (NEG); ZZUR CULT IF INDIC CLEAN CATCH NO
[2017-07-27 20:56] LABS: BASO % 0.3 %; BASO ABS # 0.02 K/uL (0-0.2); COMPLETE YES; HEMATOCRIT 37.9 % (37-47); IG% 0.3 %; LYMPH % 39.2 %; LYMPH ABS # 2.31 K/uL (1.2-3.4); MEAN CELL VOLUME 88.1 fL (80-100); MEAN CORPUSCULAR HEMOGLOBIN 30.2 pg (25-34); MEAN CORPUSCULAR HGB CONC 34.3 g/dl (32-36); MEAN PLATELET VOLUME 9.5 fL (7.4-10.4); NEUT % 47.2 %; PLATELET COUNT 217 K/uL (130-400)
[2017-07-27 20:58] LABS: MANUAL MICROSCOPIC REQUIRED? NO; REVIEW REQ? NO
[2017-07-27 21:13] LABS: BLOOD UREA NITROGEN 10 mg/dl (7-18); GLUCOSE 83 mg/dl (70-99)
[2017-07-27 21:14] LABS: ALT/SGPT 17 U/L (12-78); BUN/CREATININE RATIO 12.9 (10-20); CALCIUM 9.2 mg/dl (8.5-10.1); CARBON DIOXIDE 27 mmol/L (21-32); CHLORIDE 109 mmol/L (98-107); POTASSIUM 3.6 mmol/L (3.5-5.1); SODIUM 142 mmol/L (136-145)
[2017-07-27 21:24] LABS: ALB/GLOB RATIO 1.3 (0.9-2); ALKALINE PHOSPHATASE 60 U/L (45-117); AST/SGOT 12 U/L (15-37)
[2017-07-27 21:48] LABS: LYME DISEASE AB IGG NEG (NEG); LYME DISEASE AB IGM NEG (NEG)
[2017-07-27] MEDS ORDERED: GADAVIST IV PRN (22:30)
--- NOTE | 2017-07-27 22:47 | DIAGNOSTIC IMAGING REPORT ---
BRAIN COMBO CLINICAL HISTORY: 31 years-old Female presenting with dizzy, meneses, blurred vision, pressure in the back of the head, trouble remembering things. TECHNIQUE: Multisequence, multiplanar MR imaging of the brain was performed before and after the administration of intravenous contrast. IV contrast: 5.5 mL of Gadavist. COMPARISON: CT head performed on 01/18/2015. FINDINGS: Ventricles and sulci normal in size. Brain parenchyma normal in appearance with preserved diaz-white differentiation. No mass effect or midline shift. No restricted diffusion to suggest acute ischemia. No hemorrhage. No extra-axial fluid collection. T2 skull base flow voids preserved. No abnormal parenchymal enhancement. Bone marrow signal intensity within the calvarium within normal limits. IMPRESSION: 1. No acute intracranial pathology. No abnormal enhancement. Electronically signed by: Roel Calloway M.D. 07/27/2017 10:45 PM Dictated Date/Time: 07/27/2017 10:41 PM
[2017-07-27 23:45] VITALS: BP 104/59; PULSE 75; O2SAT 100
== END 2017-07-27 23:46 | disposition home or self-care (01) ==
LOC: C.EDB 18:50 → C.EDC 23:46
DX: R51 Headache (principal); R42 Dizziness and giddiness; R53.83 Other fatigue; H53.9 Unspecified visual disturbance; F17.200 Nicotine dependence, unspecified, uncomplicated

== ENCOUNTER → 2017-08-08 | Outpatient (CLI) | payer OTHER ==
[~2017-08-08] MED LIST changes: +FERRCAP9 PO; -MINO75CA2 PO; +MNC50 PO; -OXYC-57 PO; +SPIR25TA89 PO
== END | disposition home or self-care (01) ==
LOC: C.LABSPEC 13:14
PROVIDERS: ATTEND Obstetrics & Gynecology
DX: N89.8 Other specified noninflammatory disorders of vagina (principal)